=== PATIENT | female | born 1980 | race African-American/Black ===

== ENCOUNTER 2024-01-07 00:02 | Emergency (ER) | payer OTHER ==
[~2024-01-07] VITALS: Ht 165.1 cm; Wt 82.1 kg
[2024-01-07 01:28] VITALS: TEMP 98
[2024-01-07 01:30] VITALS: BP 109/76; O2SAT 100
[2024-01-07] MEDS ORDERED: IBUPROFEN 600 MG TABLET ONE (02:25)
[2024-01-07] MEDS ORDERED: HYDROCODONE/APAP 5/325MG TABLET ONE (02:25)
[2024-01-07] MEDS: HYDROCODONE/APAP 5/325MG TABLET PO ONE (02:26)
[2024-01-07] MEDS: IBUPROFEN 600 MG TABLET PO ONE (02:26)
== END 2024-01-07 03:30 | disposition left against medical advice (07) ==
LOC: ER 00:08
DX: M25.552 Pain in left hip (principal); M25.572 Pain in left ankle and joints of left foot; M79.642 Pain in left hand; M54.50 Low back pain, unspecified; V49.49XA Driver injured in collision with other motor vehicles in traffic accident, initial encounter; Y93.89 Activity, other specified; Y92.89 Other specified places as the place of occurrence of the external cause; Y99.8 Other external cause status
CPT/HCPCS: 72131-TC; 73110; 73130-TC; 73502; 73610-TC; 73630-TC